=== PATIENT | male | born 1930 | race Caucasian/White ===

== ENCOUNTER 2018-05-17 14:08 | Inpatient (IN) | payer MEDICARE ==
[2018-05-17 14:45] VITALS: BMI 35.0
--- NOTE | 2018-05-17 17:34 | History and Physical Report ---
History of Present Illnes - History of Present Illness Reason for Visit: Right intertrochanteric hip fracture History of Present Illness: This is an 87 year old male who earlier this week was sweeping in his garage. He bent over to push something into the dust pain and when he stood up, he got dizzy and fell to his right landing on his right arm and hip. He had his cell phone with him, and he called 911. He was taken to the ER at [place] where he was noted to have a right displaced, closed intertrochanteric hip fracture. He was taken to the OR by Dr. Pedroza on 05/14/18, and this was repaired with an intramedullary nail. His postoperative course has been a little complicated by lack of willingness to get up and ambulate on it, but he states that he will attempt to do so when he sees therapy tomorrow. - Past Medical History Cardiac: HTN PSYCHOLOGY ASSOCIATE: TIA Musculoskeletal: Osteoarthritis Renal/: Other (BPH) Endocrine: Other (Prediabetes) - Past Surgical History Past Surgical History: Total Knee Replacement (Bilateral), Tonsillectomy, Other (right intramedullary nailing of intratrochanteric hip fracture) - Past Social History Smoke: No Alcohol: None Drugs: None Lives: Alone ( 12 years ago) Domestic Violence: Negative - Health Maintenance Health Maintenance: Cholesterol Influenza Vaccine: Current for this Influenza Season Pneumonia Vaccine: Yes Resuscitation Status: Resusciation Status Resuscitation Status Full Code - Unable to Obtain History Unable to Obtain: No Review of Systems - Review of Systems Constitutional: negative: Fever, Chills Eyes: negative: pain, vision change ENT: negative: Ear Pain, Ear Discharge Respiratory: negative: Cough, Dry Cardiovascular: negative: Chest Pain Gastrointestinal: negative: Nausea, Vomiting Genitourinary: negative: Dysuria Musculoskeletal: Leg Pain (right hip). negative: Neck Pain, Shoulder Pain Skin: negative: Rash, Lesions Neurological: negative: Weakness, Confusion - Medications/Allergies Home Medications: Home Medications Acetaminophen [Tylenol] 650 mg PO Q6 PRN 05/17/18 Carboxymethylcellulos/Glycerin [Refresh Repair 0.5-0.9% Drop] 10 ml OP BID 05/17/18 Cholecalciferol (Vitamin D3) [Vitamin D3] 2,000 unit PO DAILY 05/17/18 Diazepam [Valium] 2 mg PO Q6H PRN 05/17/18 Docusate Sodium [Colace] 100 mg PO BID 05/17/18 Enoxaparin Sodium [Lovenox] 40 mg SQ QD 05/17/18 Finasteride [Proscar] 5 mg PO HS 05/17/18 Lisinopril 20 mg PO DAILY 05/17/18 Polyethylene Glycol 3350 [Miralax] 17 gm PO 1100 05/17/18 Prednisolone Acetate/Pf [Prednisolone Acet 1% Eye Drop] 1 drop OP DAILY 05/17/18 Psyllium Husk (with Sugar) [Metamucil Packet] 3.4 gm PO HS 05/17/18 Tamsulosin HCl 0.4 mg PO HS 05/17/18 Tramadol HCl [Ultram] 50 mg PO Q4H PRN 05/17/18 amLODIPine BESYLATE [Norvasc] 5 mg PO 0900 05/17/18 oxyCODONE HCL/ACETAMINOPHEN [Percocet 5-325 mg Tablet] 2 each PO Q4 PRN 05/17/18 Current Inpatient Medications: Current Inpatient Medications Enoxaparin Sodium (Lovenox) 30 mg SQ DAILY RAUDEL Stop: 06/01/18 08:59 Exam - Exam Vital Signs: Vital Signs (72 hours) 05/17/18 05/17/18 14:34 14:42 Temperature 98.0 F 98 F Pulse Rate [ 80 80 Left] Respiratory 20 20 Rate Blood Pressure 149/67 149/67 [Left Arm] O2 Sat by Pulse 97 97 Oximetry General: Alert, Oriented to Person, Oriented to Place, Oriented to Time, Cooperative, Mild distress HEENT: Atraumatic, PERRLA, EOMI Neck: Stridor, Rigidity Lungs: Clear to auscultation, Normal air movement Cardiovascular: Murmur (III/), Irregularly Irregular Murmur: Systolic Murmur Murmur Location: Left Sternal Boarder Heart Murmur Grade: III Abdomen: Normal bowel sounds, Soft, No tenderness, No hepatospenomegaly Genitourinary: No: Other Male Genitourinary: No: Scrotal Edema Female Genitourinary: No: Other Integumentary: Normal, [place], Warm Extremities: No clubbing, No cyanosis, Other (Incisions on right hip look good) Neurological: Normal speech, Strength Equal Bilat Psych/Mental Status: Mental status NL, Mood NL Assessment/Plan - Assessment/Plan (1) Intertrochanteric fracture of right hip Status: Acute Current Visit: Yes Qualifiers: Encounter type: initial encounter Fracture type: closed Fracture alignment: displaced Qualified Code(s): S72.141A - Displaced intertrochanteric fracture of right femur, initial encounter for closed fracture Assessment: S/P intramedullary nailing Plan: Pain medication PT/OT (2) Prediabetes Status: Acute Current Visit: Yes Assessment: His blood sugars were all well controlled at [facility], so I don't think that we need to continue with SSI (3) BPH (benign prostatic hyperplasia) Status: Acute Current Visit: Yes Assessment: Continue Flomax (4) Constipation Status: Acute Current Visit: Yes Assessment: Miralax, senokot/colace (5) Essential hypertension Status: Acute Current Visit: Yes Assessment: Continue lisinopril VTE Assessment - RISK FACTOR SCORE VTE RISK FACTOR SCORES: AGE OVER 60 YEARS, ANTICIPATED BED CONFINEMENT OR IMMOBILIZATION > 24 HOURS - RISK VTE MODERATE RISK: SCORE OF 2 (RISK PROXIMAL DVT 2-4%) PROPHYAXIS NEEDED (On Lovenox)
[2018-05-17] MEDS: TAMSULOSIN HCL 0.4 MG CAP.ER.24H PO SCH (19:21)
[2018-05-17] MEDS ORDERED: oxyCODONE/ACETAMINOPHEN 5/325 TABLET PO ONE (20:18)
[2018-05-17] MEDS: diazePAM 5 MG TABLET PO PRN (21:00)
[2018-05-17] MEDS: oxyCODONE/ACETAMINOPHEN 5/325 TABLET PO PRN (21:00)
[2018-05-17] MEDS: SENNOSIDES/DOCUSATE 8.6/50 MG 1 EACH TABLET PO SCH (21:00)
[2018-05-17] MEDS: CARBOXYMETHYLCELLULOSE 0.5% OU SCH (21:00)
[2018-05-17] MEDS: FINASTERIDE 5 MG TABLET PO SCH (21:00)
[2018-05-18 06:59] LABS: MEAN CORPUSCULAR HEMOGLOBIN 29.2 pg (28.0-34.0)
[2018-05-18 07:00] LABS: BASOPHILS % 0.6 % (0.0-1.5); EOSINOPHILS % 5.2 % (0.0-6.8); NEUTROPHILS # 8.2 # k/uL (1.4-7.7)
[2018-05-18 07:02] LABS: eGFR (Non-African) > 60
[2018-05-18] MEDS ORDERED: oxyCODONE/ACETAMINOPHEN 5/325 TABLET PO ONE ×2 (08:08→20:39)
[2018-05-18] MEDS: oxyCODONE/ACETAMINOPHEN 5/325 TABLET PO PRN ×2 (08:10→20:42)
[2018-05-18] MEDS: PREDNISOLONE ACETATE OU SCH (08:11)
[2018-05-18] MEDS: amLODIPine BESYLATE 5 MG TABLET PO SCH (08:11)
[2018-05-18] MEDS: ENOXAPARIN SODIUM 30 MG/0.3 ML DISP.SYRIN SQ SCH (08:11)
[2018-05-18] MEDS: CARBOXYMETHYLCELLULOSE 0.5% OU SCH ×2 (08:11→20:42)
[2018-05-18] MEDS: LISINOPRIL 10 MG TABLET PO SCH (08:11)
[2018-05-18] MEDS: SENNOSIDES/DOCUSATE 8.6/50 MG 1 EACH TABLET PO SCH ×2 (08:12→20:43)
[2018-05-18] MEDS: CHOLECALCIFEROL (VIT-D3) 1,000 UNIT TABLET PO SCH (08:12)
[2018-05-18] MEDS: BISACODYL 10 MG SUPP.RECT RC PRN (08:25)
[2018-05-18] MEDS: ASPARTAME PO SCH (10:24)
[2018-05-18] MEDS: PSYLLIUM HUSK PO SCH (10:24)
[2018-05-18] MEDS: TAMSULOSIN HCL 0.4 MG CAP.ER.24H PO SCH (17:05)
[2018-05-18] MEDS ORDERED: SENNOSIDES 8.6 MG TABLET PO ONE (20:37)
[2018-05-18] MEDS: FINASTERIDE 5 MG TABLET PO SCH (20:43)
[2018-05-19] MEDS ORDERED: oxyCODONE/ACETAMINOPHEN 5/325 TABLET PO ONE (07:17)
[2018-05-19] MEDS: oxyCODONE/ACETAMINOPHEN 5/325 TABLET PO PRN ×3 (07:19→20:42)
[2018-05-19] MEDS: diazePAM 5 MG TABLET PO PRN ×2 (08:02→20:41)
[2018-05-19] MEDS: ENOXAPARIN SODIUM 30 MG/0.3 ML DISP.SYRIN SQ SCH (09:35)
[2018-05-19] MEDS: PREDNISOLONE ACETATE OU SCH (09:36)
[2018-05-19] MEDS: SENNOSIDES/DOCUSATE 8.6/50 MG 1 EACH TABLET PO SCH ×2 (09:36→20:42)
[2018-05-19] MEDS: LISINOPRIL 10 MG TABLET PO SCH (09:36)
[2018-05-19] MEDS: amLODIPine BESYLATE 5 MG TABLET PO SCH (09:36)
[2018-05-19] MEDS: CHOLECALCIFEROL (VIT-D3) 1,000 UNIT TABLET PO SCH (09:37)
[2018-05-19] MEDS: CARBOXYMETHYLCELLULOSE 0.5% OU SCH ×2 (10:11→20:42)
[2018-05-19] MEDS: ASPARTAME PO SCH (11:46)
[2018-05-19] MEDS: PSYLLIUM HUSK PO SCH (11:46)
[2018-05-19] MEDS: TAMSULOSIN HCL 0.4 MG CAP.ER.24H PO SCH (17:56)
[2018-05-19] MEDS: FINASTERIDE 5 MG TABLET PO SCH (20:42)
[2018-05-20] MEDS: ENOXAPARIN SODIUM 30 MG/0.3 ML DISP.SYRIN SQ SCH (08:52)
[2018-05-20] MEDS: SENNOSIDES/DOCUSATE 8.6/50 MG 1 EACH TABLET PO SCH ×2 (08:52→21:31)
[2018-05-20] MEDS: CARBOXYMETHYLCELLULOSE 0.5% OU SCH ×2 (08:52→21:31)
[2018-05-20] MEDS: CHOLECALCIFEROL (VIT-D3) 1,000 UNIT TABLET PO SCH (08:53)
[2018-05-20] MEDS: oxyCODONE/ACETAMINOPHEN 5/325 TABLET PO PRN ×2 (08:53→21:32)
[2018-05-20] MEDS: amLODIPine BESYLATE 5 MG TABLET PO SCH (08:53)
[2018-05-20] MEDS: PREDNISOLONE ACETATE OU SCH (08:53)
[2018-05-20] MEDS: LISINOPRIL 10 MG TABLET PO SCH (09:44)
[2018-05-20] MEDS: PSYLLIUM HUSK PO SCH (12:40)
[2018-05-20] MEDS: ASPARTAME PO SCH (12:40)
[2018-05-20] MEDS: TAMSULOSIN HCL 0.4 MG CAP.ER.24H PO SCH (17:13)
[2018-05-20] MEDS: FINASTERIDE 5 MG TABLET PO SCH (21:31)
[2018-05-21] MEDS: amLODIPine BESYLATE 5 MG TABLET PO SCH (08:37)
[2018-05-21] MEDS: ENOXAPARIN SODIUM 30 MG/0.3 ML DISP.SYRIN SQ SCH (08:37)
[2018-05-21] MEDS: PREDNISOLONE ACETATE OU SCH (08:37)
[2018-05-21] MEDS: LISINOPRIL 10 MG TABLET PO SCH (08:37)
[2018-05-21] MEDS: SENNOSIDES/DOCUSATE 8.6/50 MG 1 EACH TABLET PO SCH ×2 (08:38→20:44)
[2018-05-21] MEDS: oxyCODONE/ACETAMINOPHEN 5/325 TABLET PO PRN ×2 (08:50→20:44)
[2018-05-21] MEDS: CARBOXYMETHYLCELLULOSE 0.5% OU SCH ×2 (09:00→20:47)
[2018-05-21] MEDS: CHOLECALCIFEROL (VIT-D3) 1,000 UNIT TABLET PO SCH (09:00)
[2018-05-21] MEDS: ASPARTAME PO SCH (11:48)
[2018-05-21] MEDS: PSYLLIUM HUSK PO SCH (11:48)
[2018-05-21] MEDS: TAMSULOSIN HCL 0.4 MG CAP.ER.24H PO SCH (17:37)
[2018-05-21] MEDS: FINASTERIDE 5 MG TABLET PO SCH (20:44)
[2018-05-22] MEDS: amLODIPine BESYLATE 5 MG TABLET PO SCH (08:13)
[2018-05-22] MEDS: CARBOXYMETHYLCELLULOSE 0.5% OU SCH ×2 (08:13→20:33)
[2018-05-22] MEDS: ENOXAPARIN SODIUM 30 MG/0.3 ML DISP.SYRIN SQ SCH (08:13)
[2018-05-22] MEDS: PREDNISOLONE ACETATE OU SCH (08:13)
[2018-05-22] MEDS: LISINOPRIL 10 MG TABLET PO SCH (08:14)
[2018-05-22] MEDS: SENNOSIDES/DOCUSATE 8.6/50 MG 1 EACH TABLET PO SCH ×2 (08:14→20:33)
[2018-05-22] MEDS: CHOLECALCIFEROL (VIT-D3) 1,000 UNIT TABLET PO SCH (08:14)
[2018-05-22] MEDS: oxyCODONE/ACETAMINOPHEN 5/325 TABLET PO PRN (08:19)
[2018-05-22] MEDS: ASPARTAME PO SCH (11:39)
[2018-05-22] MEDS: PSYLLIUM HUSK PO SCH (11:39)
[2018-05-22] MEDS: TAMSULOSIN HCL 0.4 MG CAP.ER.24H PO SCH (17:26)
[2018-05-22] MEDS: FINASTERIDE 5 MG TABLET PO SCH (20:33)
[2018-05-23] MEDS: oxyCODONE/ACETAMINOPHEN 5/325 TABLET PO PRN ×2 (05:54→15:10)
[2018-05-23] MEDS: amLODIPine BESYLATE 5 MG TABLET PO SCH (08:11)
[2018-05-23] MEDS: CHOLECALCIFEROL (VIT-D3) 1,000 UNIT TABLET PO SCH (08:11)
[2018-05-23] MEDS: CARBOXYMETHYLCELLULOSE 0.5% OU SCH ×2 (08:11→21:00)
[2018-05-23] MEDS: LISINOPRIL 10 MG TABLET PO SCH (08:11)
[2018-05-23] MEDS: PREDNISOLONE ACETATE OU SCH (08:11)
[2018-05-23] MEDS: ENOXAPARIN SODIUM 30 MG/0.3 ML DISP.SYRIN SQ SCH (08:11)
[2018-05-23] MEDS: SENNOSIDES/DOCUSATE 8.6/50 MG 1 EACH TABLET PO SCH ×2 (08:11→21:00)
[2018-05-23] MEDS: PSYLLIUM HUSK PO SCH (10:26)
[2018-05-23] MEDS: ASPARTAME PO SCH (10:26)
[2018-05-23] MEDS ORDERED: HYDROCORTISONE 2.5% RC PRN (10:29)
[2018-05-23] MEDS: TAMSULOSIN HCL 0.4 MG CAP.ER.24H PO SCH (17:26)
[2018-05-23] MEDS: FINASTERIDE 5 MG TABLET PO SCH (21:00)
[2018-05-24] MEDS: CARBOXYMETHYLCELLULOSE 0.5% OU SCH ×2 (08:12→21:00)
[2018-05-24] MEDS: PREDNISOLONE ACETATE OU SCH (08:12)
[2018-05-24] MEDS: amLODIPine BESYLATE 5 MG TABLET PO SCH (08:12)
[2018-05-24] MEDS: ENOXAPARIN SODIUM 30 MG/0.3 ML DISP.SYRIN SQ SCH (08:12)
[2018-05-24] MEDS: LISINOPRIL 10 MG TABLET PO SCH (08:13)
[2018-05-24] MEDS: CHOLECALCIFEROL (VIT-D3) 1,000 UNIT TABLET PO SCH (08:13)
[2018-05-24] MEDS: SENNOSIDES/DOCUSATE 8.6/50 MG 1 EACH TABLET PO SCH ×2 (08:13→21:00)
[2018-05-24] MEDS: oxyCODONE/ACETAMINOPHEN 5/325 TABLET PO PRN ×2 (08:28→21:00)
[2018-05-24] MEDS: PSYLLIUM HUSK PO SCH (10:51)
[2018-05-24] MEDS: ASPARTAME PO SCH (10:51)
[2018-05-24] MEDS: TAMSULOSIN HCL 0.4 MG CAP.ER.24H PO SCH (17:31)
[2018-05-24] MEDS: FINASTERIDE 5 MG TABLET PO SCH (21:00)
[2018-05-25] MEDS: CARBOXYMETHYLCELLULOSE 0.5% OU SCH ×2 (08:30→21:18)
[2018-05-25] MEDS: CHOLECALCIFEROL (VIT-D3) 1,000 UNIT TABLET PO SCH (08:31)
[2018-05-25] MEDS: LISINOPRIL 10 MG TABLET PO SCH (08:31)
[2018-05-25] MEDS: ENOXAPARIN SODIUM 30 MG/0.3 ML DISP.SYRIN SQ SCH (08:31)
[2018-05-25] MEDS: SENNOSIDES/DOCUSATE 8.6/50 MG 1 EACH TABLET PO SCH ×2 (08:31→21:18)
[2018-05-25] MEDS: PREDNISOLONE ACETATE OU SCH (08:31)
[2018-05-25] MEDS: amLODIPine BESYLATE 5 MG TABLET PO SCH (08:31)
[2018-05-25] MEDS: ACETAMINOPHEN 325 MG TABLET PO PRN ×2 (08:43→14:35)
[2018-05-25] MEDS: PSYLLIUM HUSK PO SCH (11:49)
[2018-05-25] MEDS: ASPARTAME PO SCH (11:49)
[2018-05-25] MEDS: NAPROXEN 250 MG TABLET PO PRN (17:16)
[2018-05-25] MEDS: TAMSULOSIN HCL 0.4 MG CAP.ER.24H PO SCH (17:16)
[2018-05-25] MEDS: FINASTERIDE 5 MG TABLET PO SCH (21:18)
[2018-05-26] MEDS: amLODIPine BESYLATE 5 MG TABLET PO SCH (08:20)
[2018-05-26] MEDS: ENOXAPARIN SODIUM 30 MG/0.3 ML DISP.SYRIN SQ SCH (08:20)
[2018-05-26] MEDS: CARBOXYMETHYLCELLULOSE 0.5% OU SCH ×2 (08:20→20:15)
[2018-05-26] MEDS: PREDNISOLONE ACETATE OU SCH (08:20)
[2018-05-26] MEDS: SENNOSIDES/DOCUSATE 8.6/50 MG 1 EACH TABLET PO SCH ×2 (08:21→20:15)
[2018-05-26] MEDS: LISINOPRIL 10 MG TABLET PO SCH (08:21)
[2018-05-26] MEDS: CHOLECALCIFEROL (VIT-D3) 1,000 UNIT TABLET PO SCH (08:21)
[2018-05-26] MEDS: PSYLLIUM HUSK PO SCH (11:26)
[2018-05-26] MEDS: ASPARTAME PO SCH (11:26)
[2018-05-26] MEDS: TAMSULOSIN HCL 0.4 MG CAP.ER.24H PO SCH (17:10)
[2018-05-26] MEDS: NAPROXEN 250 MG TABLET PO PRN (17:10)
[2018-05-26] MEDS: FINASTERIDE 5 MG TABLET PO SCH (20:15)
[2018-05-26] MEDS: oxyCODONE/ACETAMINOPHEN 5/325 TABLET PO PRN (20:17)
[2018-05-27] MEDS: NAPROXEN 250 MG TABLET PO PRN (10:15)
[2018-05-27] MEDS: LISINOPRIL 10 MG TABLET PO SCH (10:16)
[2018-05-27] MEDS: CHOLECALCIFEROL (VIT-D3) 1,000 UNIT TABLET PO SCH (10:16)
[2018-05-27] MEDS: amLODIPine BESYLATE 5 MG TABLET PO SCH (10:16)
[2018-05-27] MEDS: ENOXAPARIN SODIUM 30 MG/0.3 ML DISP.SYRIN SQ SCH (10:16)
[2018-05-27] MEDS: PREDNISOLONE ACETATE OU SCH (10:17)
[2018-05-27] MEDS: CARBOXYMETHYLCELLULOSE 0.5% OU SCH ×2 (10:17→20:46)
[2018-05-27] MEDS: SENNOSIDES/DOCUSATE 8.6/50 MG 1 EACH TABLET PO SCH ×2 (10:17→20:46)
[2018-05-27] MEDS: PSYLLIUM HUSK PO SCH (12:13)
[2018-05-27] MEDS: ASPARTAME PO SCH (12:13)
[2018-05-27] MEDS: TAMSULOSIN HCL 0.4 MG CAP.ER.24H PO SCH (18:11)
[2018-05-27] MEDS: FINASTERIDE 5 MG TABLET PO SCH (20:46)
[2018-05-27] MEDS: PHENAZOPYRIDINE HCL 200 MG TABLET PO SCH (21:23)
[2018-05-28] MEDS: oxyCODONE/ACETAMINOPHEN 5/325 TABLET PO PRN ×2 (02:52→20:11)
[2018-05-28] MEDS ORDERED: BISACODYL 5 MG TABLET.DR PO ONE (08:05)
--- NOTE | 2018-05-28 08:07 | Inpatient Progress Note ---
Subjective - Required Recertification Statement I anticipate X number of days because-include discharge plan: 10 - Review of Systems Subjective: Patient complains of pain with urination, urinating every 10 min , and only able to void 100 cc. Had a catheter when he came from his hip fx but was bladder trained and weaned off catheter. He believes the problem is not being on his home regimen for his prostate, though I explained the meds are the same we have him on here but they look different based on different suppliers. Urine culture is pending and should be back tomorrow. Objective - Exam Vitals and I&O: Vital Signs Temp 97.2 F L 05/27/18 21:00 Pulse 70 05/27/18 21:00 Resp 20 05/27/18 21:00 BP 128/69 05/27/18 21:00 Pulse Ox 99 05/27/18 21:00 Intake & Output 05/27/18 05/27/18 05/28/18 11:59 23:59 11:59 Intake Total 1040 960 720 Output Total 1375 1 450 Balance -335 959 270 Weight 116.913 kg Intake: Oral 1040 960 720 Output: Urine 1375 1 450 Other: Voiding Method Bedside Commode # Voids 4 # Bowel Movements 0 General: Alert, Oriented to Person, Oriented to Place, Oriented to Time, Cooperative, No acute distress Lungs: Clear to auscultation, Normal air movement, Speaks full Sentences - Results Results: Laboratory Results WBC 11.20 K/ul (4.00-12.00) 05/18/18 06:20 RBC 4.22 M/ul (3.90-5.20) 05/18/18 06:20 Hgb 12.4 g/dL (12.0-18.0) 05/18/18 06:20 Hct 37.2 % (37.0-53.0) 05/18/18 06:20 MCV 88.0 fl (80.0-100.0) 05/18/18 06:20 MCH 29.2 pg (28.0-34.0) 05/18/18 06:20 MCHC 33.2 g/dL (30.0-36.0) 05/18/18 06:20 RDW 14.2 % (11.3-14.3) 05/18/18 06:20 Plt Count 235 K/mm3 (130-400) 05/18/18 06:20 Neut % (Auto) 73.1 % (39.0-79.0) 05/18/18 06:20 Lymph % (Auto) 15.1 % (16.0-50.0) L 05/18/18 06:20 [place] % (Auto) 6.0 % (0.0-11.0) 05/18/18 06:20 Eos % (Auto) 5.2 % (0.0-6.8) 05/18/18 06:20 Baso % (Auto) 0.6 % (0.0-1.5) 05/18/18 06:20 Neut # (Auto) 8.2 # k/uL (1.4-7.7) H 05/18/18 06:20 Lymph # (Auto) 1.7 # k/uL (0.6-4.0) 05/18/18 06:20 [place] # (Auto) 0.7 # k/uL (0.0-0.9) 05/18/18 06:20 Eos # (Auto) 0.6 # k/uL (0.0-0.6) 05/18/18 06:20 Baso # (Auto) 0.1 # k/uL (0.0-0.5) 05/18/18 06:20 Sodium 134 mmol/L (137-145) L 05/18/18 06:20 Potassium 3.6 mmol/L (3.5-5.1) 05/18/18 06:20 Chloride 100 mmol/L (98-107) 05/18/18 06:20 Carbon Dioxide 29 mmol/L (22-30) 05/18/18 06:20 BUN 17 mg/dL (9-20) 05/18/18 06:20 Creatinine 0.81 mg/dL (0.66-1.25) 05/18/18 06:20 Estimated Creat Clear 116 05/18/18 06:20 Est GFR ( Amer) > 60 (60-) 05/18/18 06:20 Est GFR (Non-Af Amer) > 60 (60-) 05/18/18 06:20 Glucose 126 mg/dL (74-106) H 05/18/18 06:20 Calcium 8.5 mg/dL (8.4-10.2) 05/18/18 06:20 Total Bilirubin 1.4 mg/dL (0.2-1.3) H 05/18/18 06:20 AST 30 U/L (15-46) 05/18/18 06:20 ALT 24 U/L (0-50) 05/18/18 06:20 Alkaline Phosphatase 74 U/L (38-126) 05/18/18 06:20 Total Protein 6.7 g/dL (6.3-8.2) 05/18/18 06:20 Albumin 3.5 g/dL (3.5-5.0) 05/18/18 06:20 Assessment/Plan - Assessment/Plan (1) Urinary retention Status: Acute Current Visit: Yes Plan: PVR u/s done showed 1000 cc in bladder before void and 1200 cc in bladder after void. Interestingly, the tech did not see an enlarged prostate. Will replace hines catheter at this time. Will need to see urology in the future. Await urine culture
[2018-05-28] MEDS: CARBOXYMETHYLCELLULOSE 0.5% OU SCH ×2 (09:24→20:13)
[2018-05-28] MEDS: SENNOSIDES/DOCUSATE 8.6/50 MG 1 EACH TABLET PO SCH ×2 (09:25→20:10)
[2018-05-28] MEDS: ENOXAPARIN SODIUM 30 MG/0.3 ML DISP.SYRIN SQ SCH (09:25)
[2018-05-28] MEDS: amLODIPine BESYLATE 5 MG TABLET PO SCH (09:25)
[2018-05-28] MEDS: PREDNISOLONE ACETATE OU SCH (09:26)
[2018-05-28] MEDS: LISINOPRIL 10 MG TABLET PO SCH (09:27)
[2018-05-28] MEDS: CHOLECALCIFEROL (VIT-D3) 1,000 UNIT TABLET PO SCH (09:28)
[2018-05-28] MEDS: PHENAZOPYRIDINE HCL 200 MG TABLET PO SCH (09:46)
[2018-05-28] MEDS: ASPARTAME PO SCH (11:10)
[2018-05-28] MEDS: PSYLLIUM HUSK PO SCH (11:10)
--- NOTE | 2018-05-28 13:08 | Diagnostic Imaging Report ---
ROSALIO LAZO [facility] [address] [facility].[address] [address] Report Submission Date: May 28, 2018 12:46:07 PM CDT Patient Study Name: ANASTASIIA TIPTON Date: May 28, 2018 10:25:45 AM CDT Modality Type: US Gender: M Description: US PELVIS LIMITED/BLADDER/F/U : 34 Institution: [facility] Physician: ROSALIO LAZO EXAMINATION: US PELVIS LIMITED/BLADDER/F/U HISTORY: difficult urinating COMPARISON: None FINDINGS: Ultrasound of the urinary bladder was performed to evaluate bladder volume pre and post voiding. The pre-void volume is 773 mL. The post-void volume is 1268 mL. The bladder appears normal without debris. IMPRESSION: Increased urinary bladder volume after voiding, suggesting no significant amount of urine was voided. Electronically signed on May 28, 2018 12:46:07 PM CDT by: Satinder ADKINS
[2018-05-28] MEDS: FINASTERIDE 5 MG TABLET PO SCH (20:10)
[2018-05-28] MEDS: TAMSULOSIN HCL 0.4 MG CAP.ER.24H PO SCH (20:11)
[2018-05-29] MEDS: CARBOXYMETHYLCELLULOSE 0.5% OU SCH ×2 (08:26→20:12)
[2018-05-29] MEDS: SENNOSIDES/DOCUSATE 8.6/50 MG 1 EACH TABLET PO SCH ×2 (08:27→20:12)
[2018-05-29] MEDS: ENOXAPARIN SODIUM 30 MG/0.3 ML DISP.SYRIN SQ SCH (08:27)
[2018-05-29] MEDS: PREDNISOLONE ACETATE OU SCH (08:27)
[2018-05-29] MEDS: amLODIPine BESYLATE 5 MG TABLET PO SCH (08:27)
[2018-05-29] MEDS: LISINOPRIL 10 MG TABLET PO SCH (08:28)
[2018-05-29] MEDS: CHOLECALCIFEROL (VIT-D3) 1,000 UNIT TABLET PO SCH (08:28)
[2018-05-29] MEDS: ASPARTAME PO SCH (11:07)
[2018-05-29] MEDS: PSYLLIUM HUSK PO SCH (11:07)
[2018-05-29] MEDS: oxyCODONE/ACETAMINOPHEN 5/325 TABLET PO PRN ×2 (11:07→23:01)
[2018-05-29] MEDS: FINASTERIDE 5 MG TABLET PO SCH (20:13)
[2018-05-29] MEDS: TAMSULOSIN HCL 0.4 MG CAP.ER.24H PO SCH (20:14)
[2018-05-30] MEDS: ENOXAPARIN SODIUM 30 MG/0.3 ML DISP.SYRIN SQ SCH (08:07)
[2018-05-30] MEDS: CHOLECALCIFEROL (VIT-D3) 1,000 UNIT TABLET PO SCH (08:07)
[2018-05-30] MEDS: LISINOPRIL 10 MG TABLET PO SCH (08:08)
[2018-05-30] MEDS: amLODIPine BESYLATE 5 MG TABLET PO SCH (08:08)
[2018-05-30] MEDS: PREDNISOLONE ACETATE OU SCH (08:09)
[2018-05-30] MEDS: oxyCODONE/ACETAMINOPHEN 5/325 TABLET PO PRN ×2 (08:09→20:08)
[2018-05-30] MEDS: CARBOXYMETHYLCELLULOSE 0.5% OU SCH ×2 (08:09→20:14)
[2018-05-30] MEDS: SENNOSIDES/DOCUSATE 8.6/50 MG 1 EACH TABLET PO SCH ×2 (08:09→20:10)
[2018-05-30] MEDS: PSYLLIUM HUSK PO SCH (11:36)
[2018-05-30] MEDS: ASPARTAME PO SCH (11:36)
[2018-05-30] MEDS: FINASTERIDE 5 MG TABLET PO SCH (20:09)
[2018-05-30] MEDS: TAMSULOSIN HCL 0.4 MG CAP.ER.24H PO SCH (20:10)
[2018-05-31] MEDS: SENNOSIDES/DOCUSATE 8.6/50 MG 1 EACH TABLET PO SCH ×2 (08:37→21:39)
[2018-05-31] MEDS: CHOLECALCIFEROL (VIT-D3) 1,000 UNIT TABLET PO SCH (08:37)
[2018-05-31] MEDS: CARBOXYMETHYLCELLULOSE 0.5% OU SCH ×2 (08:37→21:38)
[2018-05-31] MEDS: ENOXAPARIN SODIUM 30 MG/0.3 ML DISP.SYRIN SQ SCH (08:37)
[2018-05-31] MEDS: LISINOPRIL 10 MG TABLET PO SCH (08:37)
[2018-05-31] MEDS: amLODIPine BESYLATE 5 MG TABLET PO SCH (08:38)
[2018-05-31] MEDS: PREDNISOLONE ACETATE OU SCH (08:38)
[2018-05-31 11:26] LABS: BASOPHILS % 0.6 % (0.0-1.5); EOSINOPHILS % 4.8 % (0.0-6.8); MEAN CORPUSCULAR HEMOGLOBIN 29.8 pg (28.0-34.0); MONOCYTES % 6.7 % (0.0-11.0); NEUTROPHILS # 7.7 # k/uL (1.4-7.7)
[2018-05-31] MEDS ORDERED: POLYETHYLENE GLYCOL 3350 17 GM POWD.PACK ONE (11:54)
[2018-05-31] MEDS: PSYLLIUM HUSK PO SCH (11:58)
[2018-05-31] MEDS: ASPARTAME PO SCH (11:58)
[2018-05-31] MEDS: oxyCODONE/ACETAMINOPHEN 5/325 TABLET PO PRN ×2 (11:58→21:40)
[2018-05-31 12:07] LABS: eGFR (Non-African) > 60
[2018-05-31] MEDS: POLYETHYLENE GLYCOL 3350 17 GM POWD.PACK PEG SCH (12:14)
--- NOTE | 2018-05-31 20:40 | Inpatient Progress Note ---
Subjective - Required Recertification Statement I anticipate X number of days because-include discharge plan: 5 - Review of Systems Events since last encounter: Was called to patient room this afternoon- pt had a shower assisted by therapies- windy were approved to remove from right hip- patient apparently became lightheaded; diaphoretic- pt was hypotensive. Therapies assisted patient with getting into bed and he felt better- color improved- IV with lab draw was completed (negative results)- EKG negative. Patient feels that he may have just got over heated. Ida better the rest of the evening. General: Denies: Fatigue HEENT: Visual Changes (temporary during orthostatic episode). Denies: Head Aches Pulmonary: Denies: Dyspnea Cardiovascular: Palpitations (during orthostatic episode), Light Headedness. Denies: Chest Pain Gastrointestinal: Denies: Nausea, Vomiting, Abdominal Pain Genitourinary: Denies: Dysuria Musculoskeletal: Denies: Back Pain Neurological: Weakness Objective - Exam Vitals and I&O: Vital Signs Temp 97.7 F 05/31/18 08:13 Pulse 63 05/31/18 08:13 Resp 20 05/31/18 08:13 BP 134/62 05/31/18 08:13 Pulse Ox 95 05/31/18 08:13 Intake & Output 05/30/18 05/31/18 05/31/18 23:59 11:59 23:59 Intake Total 240 780 320 Output Total 1150 1150 1000 Balance -910 -963 -731 Weight 112.491 kg Intake: Oral 240 780 320 Output: Urine 1150 1150 1000 Other: Voiding Method Indwelling Catheter Urinal # Bowel Movements 1 0 General: Alert, Oriented to Person, Oriented to Place, Oriented to Time, Cooperative, Mild distress (feeling much better after being placed in bed) HEENT: PERRLA, Nose Mucous membr. moist/[place] Neck: Supple, +2 carotid pulse wo bruit Lungs: Clear to auscultation, Normal air movement, Speaks full Sentences Cardiovascular: Regularly Irregular Abdomen: Normal bowel sounds, Soft, No tenderness Extremities: Normal pulses Skin: Pale, Diaphoresis (improving- color is getting better- skin is dry) Neurological: Normal speech, Strength Equal Bilat, Sensation intact Psych/Mental Status: Appropriate Affect - Results Results: Laboratory Results WBC 10.80 K/ul (4.00-12.00) 05/31/18 11:00 RBC 4.74 M/ul (3.90-5.20) 05/31/18 11:00 Hgb 14.1 g/dL (12.0-18.0) 05/31/18 11:00 Hct 42.4 % (37.0-53.0) 05/31/18 11:00 MCV 89.0 fl (80.0-100.0) 05/31/18 11:00 MCH 29.8 pg (28.0-34.0) 05/31/18 11:00 MCHC 33.4 g/dL (30.0-36.0) 05/31/18 11:00 RDW 13.4 % (11.3-14.3) 05/31/18 11:00 Plt Count 455 K/mm3 (130-400) H 05/31/18 11:00 Neut % (Auto) 71.6 % (39.0-79.0) 05/31/18 11:00 Lymph % (Auto) 16.3 % (16.0-50.0) 05/31/18 11:00 [place] % (Auto) 6.7 % (0.0-11.0) 05/31/18 11:00 Eos % (Auto) 4.8 % (0.0-6.8) 05/31/18 11:00 Baso % (Auto) 0.6 % (0.0-1.5) 05/31/18 11:00 Neut # (Auto) 7.7 # k/uL (1.4-7.7) 05/31/18 11:00 Lymph # (Auto) 1.8 # k/uL (0.6-4.0) 05/31/18 11:00 [place] # (Auto) 0.7 # k/uL (0.0-0.9) 05/31/18 11:00 Eos # (Auto) 0.5 # k/uL (0.0-0.6) 05/31/18 11:00 Baso # (Auto) 0.1 # k/uL (0.0-0.5) 05/31/18 11:00 Sodium 135 mmol/L (137-145) L 05/31/18 Unknown Potassium 4.2 mmol/L (3.5-5.1) 05/31/18 Unknown Chloride 100 mmol/L (98-107) 05/31/18 Unknown Carbon Dioxide 26 mmol/L (22-30) 05/31/18 Unknown BUN 16 mg/dL (9-20) 05/31/18 Unknown Creatinine 1.09 mg/dL (0.66-1.25) 05/31/18 Unknown Estimated Creat Clear 81 05/31/18 Unknown Est GFR ( Amer) > 60 (60-) 05/31/18 Unknown Est GFR (Non-Af Amer) > 60 (60-) 05/31/18 Unknown Glucose 138 mg/dL (74-106) H 05/31/18 Unknown Calcium 9.6 mg/dL (8.4-10.2) 05/31/18 Unknown Total Bilirubin 1.0 mg/dL (0.2-1.3) 05/31/18 Unknown AST 40 U/L (15-46) 05/31/18 Unknown ALT 45 U/L (0-50) 05/31/18 Unknown Alkaline Phosphatase 193 U/L (38-126) H 05/31/18 Unknown Total Protein 7.6 g/dL (6.3-8.2) 05/31/18 Unknown Albumin 4.9 g/dL (3.5-5.0) 05/31/18 Unknown Assessment/Plan - Assessment/Plan (1) Vagal reaction Status: Acute Current Visit: Yes Plan: will let patient rest- feeling much better- possibly just got to warm and over did it. Will continue to monitor
[2018-05-31] MEDS: FINASTERIDE 5 MG TABLET PO SCH (21:34)
[2018-05-31] MEDS: TAMSULOSIN HCL 0.4 MG CAP.ER.24H PO SCH (21:47)
[2018-06-01] MEDS: amLODIPine BESYLATE 5 MG TABLET PO SCH (08:04)
[2018-06-01] MEDS: SENNOSIDES/DOCUSATE 8.6/50 MG 1 EACH TABLET PO SCH ×2 (08:04→20:35)
[2018-06-01] MEDS: CARBOXYMETHYLCELLULOSE 0.5% OU SCH ×2 (08:04→20:36)
[2018-06-01] MEDS: CHOLECALCIFEROL (VIT-D3) 1,000 UNIT TABLET PO SCH (08:04)
[2018-06-01] MEDS: LISINOPRIL 10 MG TABLET PO SCH (08:04)
[2018-06-01] MEDS: PREDNISOLONE ACETATE OU SCH (08:04)
[2018-06-01] MEDS: BISACODYL 10 MG SUPP.RECT RC PRN (08:22)
[2018-06-01] MEDS: ASPARTAME PO SCH (11:23)
[2018-06-01] MEDS: PSYLLIUM HUSK PO SCH (11:23)
[2018-06-01] MEDS: POLYETHYLENE GLYCOL 3350 17 GM POWD.PACK PEG SCH (11:23)
[2018-06-01] MEDS: FINASTERIDE 5 MG TABLET PO SCH (20:35)
[2018-06-01] MEDS: TAMSULOSIN HCL 0.4 MG CAP.ER.24H PO SCH (20:35)
[2018-06-02] MEDS: PREDNISOLONE ACETATE OU SCH (08:25)
[2018-06-02] MEDS: LISINOPRIL 10 MG TABLET PO SCH (08:25)
[2018-06-02] MEDS: amLODIPine BESYLATE 5 MG TABLET PO SCH (08:25)
[2018-06-02] MEDS: CARBOXYMETHYLCELLULOSE 0.5% OU SCH ×2 (08:25→20:40)
[2018-06-02] MEDS: SENNOSIDES/DOCUSATE 8.6/50 MG 1 EACH TABLET PO SCH ×2 (08:26→20:40)
[2018-06-02] MEDS: CHOLECALCIFEROL (VIT-D3) 1,000 UNIT TABLET PO SCH (08:26)
[2018-06-02] MEDS: ASPARTAME PO SCH (11:41)
[2018-06-02] MEDS: PSYLLIUM HUSK PO SCH (11:41)
[2018-06-02] MEDS: POLYETHYLENE GLYCOL 3350 17 GM POWD.PACK PEG SCH (11:41)
[2018-06-02] MEDS: FINASTERIDE 5 MG TABLET PO SCH (20:40)
[2018-06-02] MEDS: NAPROXEN 250 MG TABLET PO PRN (20:40)
[2018-06-02] MEDS: TAMSULOSIN HCL 0.4 MG CAP.ER.24H PO SCH (20:40)
[2018-06-03] MEDS: SENNOSIDES/DOCUSATE 8.6/50 MG 1 EACH TABLET PO SCH ×2 (08:51→20:21)
[2018-06-03] MEDS: amLODIPine BESYLATE 5 MG TABLET PO SCH (08:51)
[2018-06-03] MEDS: CHOLECALCIFEROL (VIT-D3) 1,000 UNIT TABLET PO SCH (08:51)
[2018-06-03] MEDS: LISINOPRIL 10 MG TABLET PO SCH (08:51)
[2018-06-03] MEDS: CARBOXYMETHYLCELLULOSE 0.5% OU SCH ×2 (08:51→20:21)
[2018-06-03] MEDS: PREDNISOLONE ACETATE OU SCH (08:51)
[2018-06-03] MEDS: ASPARTAME PO SCH (11:15)
[2018-06-03] MEDS: POLYETHYLENE GLYCOL 3350 17 GM POWD.PACK PEG SCH (11:15)
[2018-06-03] MEDS: PSYLLIUM HUSK PO SCH (11:15)
[2018-06-03] MEDS: FINASTERIDE 5 MG TABLET PO SCH (20:21)
[2018-06-03] MEDS: TAMSULOSIN HCL 0.4 MG CAP.ER.24H PO SCH (20:21)
[2018-06-03] MEDS: NAPROXEN 250 MG TABLET PO PRN (20:26)
[2018-06-04] MEDS: amLODIPine BESYLATE 5 MG TABLET PO SCH (08:37)
[2018-06-04] MEDS: LISINOPRIL 10 MG TABLET PO SCH (08:38)
[2018-06-04] MEDS: CARBOXYMETHYLCELLULOSE 0.5% OU SCH ×2 (08:39→20:18)
[2018-06-04] MEDS: PREDNISOLONE ACETATE OU SCH (08:41)
[2018-06-04] MEDS: SENNOSIDES/DOCUSATE 8.6/50 MG 1 EACH TABLET PO SCH ×2 (08:42→20:18)
[2018-06-04] MEDS: CHOLECALCIFEROL (VIT-D3) 1,000 UNIT TABLET PO SCH (08:42)
[2018-06-04] MEDS: PSYLLIUM HUSK PO SCH (11:08)
[2018-06-04] MEDS: ASPARTAME PO SCH (11:08)
[2018-06-04] MEDS: POLYETHYLENE GLYCOL 3350 17 GM POWD.PACK PEG SCH (11:08)
[2018-06-04] MEDS: FINASTERIDE 5 MG TABLET PO SCH (20:18)
[2018-06-04] MEDS: TAMSULOSIN HCL 0.4 MG CAP.ER.24H PO SCH (20:18)
[2018-06-04] MEDS: NAPROXEN 250 MG TABLET PO PRN (20:25)
[2018-06-05] MEDS: LISINOPRIL 10 MG TABLET PO SCH (08:24)
[2018-06-05] MEDS: SENNOSIDES/DOCUSATE 8.6/50 MG 1 EACH TABLET PO SCH ×2 (08:25→20:20)
[2018-06-05] MEDS: CARBOXYMETHYLCELLULOSE 0.5% OU SCH ×2 (08:25→20:21)
[2018-06-05] MEDS: PREDNISOLONE ACETATE OU SCH (08:26)
[2018-06-05] MEDS: amLODIPine BESYLATE 5 MG TABLET PO SCH (08:26)
[2018-06-05] MEDS: CHOLECALCIFEROL (VIT-D3) 1,000 UNIT TABLET PO SCH (08:55)
--- NOTE | 2018-06-05 09:12 | Inpatient Progress Note ---
Subjective - Required Recertification Statement I anticipate X number of days because-include discharge plan: 7 - Review of Systems Events since last encounter: Mr. Red is engaging in therapy much better than on admit. His pain is improved. Therapy is going to be doing stairs today. They were were attempting to have him put his socks on today when I was there, but he was unable to do so. General: Denies: Chills HEENT: Denies: Head Aches Pulmonary: Denies: Dyspnea Cardiovascular: Denies: Chest Pain Gastrointestinal: Denies: Nausea, Vomiting Genitourinary: Denies: Dysuria Musculoskeletal: Leg Pain (Right hip) Neurological: Denies: Weakness, Confusion Objective - Exam Vitals and I&O: Vital Signs Temp 97.4 F L 06/05/18 08:41 Pulse 84 06/05/18 08:41 Resp 18 06/05/18 08:41 BP 135/75 06/05/18 08:41 Pulse Ox 97 06/05/18 08:41 Intake & Output 06/04/18 06/04/18 06/05/18 11:59 23:59 11:59 Intake Total 880 500 840 Output Total 800 1100 400 Balance 80 -600 440 Intake: Oral 880 500 840 Output: Urine 800 1100 400 Other: Voiding Method Indwelling Catheter Indwelling Catheter # Bowel Movements 0 General: Alert, Oriented to Person, Oriented to Place, Obese HEENT: Atraumatic, PERRLA, EOMI Neck: Supple, No JVD Lungs: Clear to auscultation Cardiovascular: Regular rate Abdomen: Normal bowel sounds Extremities: No clubbing, No cyanosis, No edema Skin: Normal, [place], Warm Neurological: Other (Tentative gait) Psych/Mental Status: Mental status NL - Results Results: Laboratory Results WBC 10.80 K/ul (4.00-12.00) 05/31/18 11:00 RBC 4.74 M/ul (3.90-5.20) 05/31/18 11:00 Hgb 14.1 g/dL (12.0-18.0) 05/31/18 11:00 Hct 42.4 % (37.0-53.0) 05/31/18 11:00 MCV 89.0 fl (80.0-100.0) 05/31/18 11:00 MCH 29.8 pg (28.0-34.0) 05/31/18 11:00 MCHC 33.4 g/dL (30.0-36.0) 05/31/18 11:00 RDW 13.4 % (11.3-14.3) 05/31/18 11:00 Plt Count 455 K/mm3 (130-400) H 05/31/18 11:00 Neut % (Auto) 71.6 % (39.0-79.0) 05/31/18 11:00 Lymph % (Auto) 16.3 % (16.0-50.0) 05/31/18 11:00 [place] % (Auto) 6.7 % (0.0-11.0) 05/31/18 11:00 Eos % (Auto) 4.8 % (0.0-6.8) 05/31/18 11:00 Baso % (Auto) 0.6 % (0.0-1.5) 05/31/18 11:00 Neut # (Auto) 7.7 # k/uL (1.4-7.7) 05/31/18 11:00 Lymph # (Auto) 1.8 # k/uL (0.6-4.0) 05/31/18 11:00 [place] # (Auto) 0.7 # k/uL (0.0-0.9) 05/31/18 11:00 Eos # (Auto) 0.5 # k/uL (0.0-0.6) 05/31/18 11:00 Baso # (Auto) 0.1 # k/uL (0.0-0.5) 05/31/18 11:00 Sodium 135 mmol/L (137-145) L 05/31/18 Unknown Potassium 4.2 mmol/L (3.5-5.1) 05/31/18 Unknown Chloride 100 mmol/L (98-107) 05/31/18 Unknown Carbon Dioxide 26 mmol/L (22-30) 05/31/18 Unknown BUN 16 mg/dL (9-20) 05/31/18 Unknown Creatinine 1.09 mg/dL (0.66-1.25) 05/31/18 Unknown Estimated Creat Clear 81 05/31/18 Unknown Est GFR ( Amer) > 60 (60-) 05/31/18 Unknown Est GFR (Non-Af Amer) > 60 (60-) 05/31/18 Unknown Glucose 138 mg/dL (74-106) H 05/31/18 Unknown Calcium 9.6 mg/dL (8.4-10.2) 05/31/18 Unknown Total Bilirubin 1.0 mg/dL (0.2-1.3) 05/31/18 Unknown AST 40 U/L (15-46) 05/31/18 Unknown ALT 45 U/L (0-50) 05/31/18 Unknown Alkaline Phosphatase 193 U/L (38-126) H 05/31/18 Unknown Total Protein 7.6 g/dL (6.3-8.2) 05/31/18 Unknown Albumin 4.9 g/dL (3.5-5.0) 05/31/18 Unknown Assessment/Plan - Assessment/Plan (1) Intertrochanteric fracture of right hip Status: Acute Current Visit: Yes Qualifiers: Encounter type: initial encounter Fracture type: closed Fracture alignment: displaced Qualified Code(s): S72.141A - Displaced intertrochanteric fracture of right femur, initial encounter for closed fracture Assessment: Healing well Plan: Continue PT (2) Prediabetes Status: Acute Current Visit: Yes Assessment: BS all below 140 (3) BPH (benign prostatic hyperplasia) Status: Acute Current Visit: Yes Assessment: Catheter remains in place (4) Constipation Status: Acute Current Visit: Yes Assessment: Continue current stool softeners (5) Essential hypertension Status: Acute Current Visit: Yes Assessment: BP well controlled
[2018-06-05] MEDS: PSYLLIUM HUSK PO SCH (11:20)
[2018-06-05] MEDS: POLYETHYLENE GLYCOL 3350 17 GM POWD.PACK PEG SCH (11:20)
[2018-06-05] MEDS: ASPARTAME PO SCH (11:20)
[2018-06-05] MEDS: NAPROXEN 250 MG TABLET PO PRN (20:20)
[2018-06-05] MEDS: TAMSULOSIN HCL 0.4 MG CAP.ER.24H PO SCH (20:21)
[2018-06-05] MEDS: FINASTERIDE 5 MG TABLET PO SCH (20:21)
[2018-06-06] MEDS: PREDNISOLONE ACETATE OU SCH (08:27)
[2018-06-06] MEDS: CHOLECALCIFEROL (VIT-D3) 1,000 UNIT TABLET PO SCH (08:28)
[2018-06-06] MEDS: LISINOPRIL 10 MG TABLET PO SCH (08:29)
[2018-06-06] MEDS: amLODIPine BESYLATE 5 MG TABLET PO SCH (08:29)
[2018-06-06] MEDS: CARBOXYMETHYLCELLULOSE 0.5% OU SCH ×2 (08:30→20:39)
[2018-06-06] MEDS: SENNOSIDES/DOCUSATE 8.6/50 MG 1 EACH TABLET PO SCH ×2 (08:30→20:39)
[2018-06-06] MEDS: POLYETHYLENE GLYCOL 3350 17 GM POWD.PACK PEG SCH (11:33)
[2018-06-06] MEDS: ASPARTAME PO SCH (11:33)
[2018-06-06] MEDS: PSYLLIUM HUSK PO SCH (11:33)
[2018-06-06] MEDS: FINASTERIDE 5 MG TABLET PO SCH (20:39)
[2018-06-06] MEDS: NAPROXEN 250 MG TABLET PO PRN (20:39)
[2018-06-06] MEDS: TAMSULOSIN HCL 0.4 MG CAP.ER.24H PO SCH (20:39)
[2018-06-07] MEDS: CARBOXYMETHYLCELLULOSE 0.5% OU SCH ×2 (08:07→21:16)
[2018-06-07] MEDS: PREDNISOLONE ACETATE OU SCH (08:07)
[2018-06-07] MEDS: amLODIPine BESYLATE 5 MG TABLET PO SCH (08:08)
[2018-06-07] MEDS: SENNOSIDES/DOCUSATE 8.6/50 MG 1 EACH TABLET PO SCH ×2 (08:09→21:16)
[2018-06-07] MEDS: CHOLECALCIFEROL (VIT-D3) 1,000 UNIT TABLET PO SCH (08:09)
[2018-06-07] MEDS: LISINOPRIL 10 MG TABLET PO SCH (08:09)
[2018-06-07] MEDS: ASPARTAME PO SCH (11:08)
[2018-06-07] MEDS: PSYLLIUM HUSK PO SCH (11:08)
[2018-06-07] MEDS: POLYETHYLENE GLYCOL 3350 17 GM POWD.PACK PEG SCH (11:08)
[2018-06-07] MEDS: FINASTERIDE 5 MG TABLET PO SCH (21:16)
[2018-06-07] MEDS: TAMSULOSIN HCL 0.4 MG CAP.ER.24H PO SCH (21:17)
[2018-06-07] MEDS: NAPROXEN 250 MG TABLET PO PRN (23:54)
[2018-06-08] MEDS: SENNOSIDES/DOCUSATE 8.6/50 MG 1 EACH TABLET PO SCH ×2 (09:46→20:37)
[2018-06-08] MEDS: CARBOXYMETHYLCELLULOSE 0.5% OU SCH ×2 (09:46→20:37)
[2018-06-08] MEDS: CHOLECALCIFEROL (VIT-D3) 1,000 UNIT TABLET PO SCH (09:46)
[2018-06-08] MEDS: PREDNISOLONE ACETATE OU SCH (09:47)
[2018-06-08] MEDS: amLODIPine BESYLATE 5 MG TABLET PO SCH (09:47)
[2018-06-08] MEDS: LISINOPRIL 10 MG TABLET PO SCH (09:47)
[2018-06-08] MEDS: ASPARTAME PO SCH (11:53)
[2018-06-08] MEDS: POLYETHYLENE GLYCOL 3350 17 GM POWD.PACK PEG SCH (11:53)
[2018-06-08] MEDS: PSYLLIUM HUSK PO SCH (11:53)
[2018-06-08] MEDS: FINASTERIDE 5 MG TABLET PO SCH (20:37)
[2018-06-08] MEDS: TAMSULOSIN HCL 0.4 MG CAP.ER.24H PO SCH (21:12)
[2018-06-09] MEDS: CARBOXYMETHYLCELLULOSE 0.5% OU SCH ×2 (07:58→20:51)
[2018-06-09] MEDS: amLODIPine BESYLATE 5 MG TABLET PO SCH (07:58)
[2018-06-09] MEDS: SENNOSIDES/DOCUSATE 8.6/50 MG 1 EACH TABLET PO SCH ×2 (07:58→20:51)
[2018-06-09] MEDS: CHOLECALCIFEROL (VIT-D3) 1,000 UNIT TABLET PO SCH (07:59)
[2018-06-09] MEDS: PREDNISOLONE ACETATE OU SCH (07:59)
[2018-06-09] MEDS: LISINOPRIL 10 MG TABLET PO SCH (07:59)
[2018-06-09] MEDS: POLYETHYLENE GLYCOL 3350 17 GM POWD.PACK PEG SCH (12:07)
[2018-06-09] MEDS: ASPARTAME PO SCH (12:07)
[2018-06-09] MEDS: PSYLLIUM HUSK PO SCH (12:07)
[2018-06-09] MEDS: NAPROXEN 250 MG TABLET PO PRN (20:50)
[2018-06-09] MEDS: TAMSULOSIN HCL 0.4 MG CAP.ER.24H PO SCH (20:50)
[2018-06-09] MEDS: FINASTERIDE 5 MG TABLET PO SCH (20:50)
[2018-06-10] MEDS: CARBOXYMETHYLCELLULOSE 0.5% OU SCH ×2 (08:26→20:28)
[2018-06-10] MEDS: amLODIPine BESYLATE 5 MG TABLET PO SCH (08:27)
[2018-06-10] MEDS: SENNOSIDES/DOCUSATE 8.6/50 MG 1 EACH TABLET PO SCH ×2 (08:27→20:28)
[2018-06-10] MEDS: PREDNISOLONE ACETATE OU SCH (08:27)
[2018-06-10] MEDS: CHOLECALCIFEROL (VIT-D3) 1,000 UNIT TABLET PO SCH (08:28)
[2018-06-10] MEDS: LISINOPRIL 10 MG TABLET PO SCH (08:28)
[2018-06-10] MEDS: POLYETHYLENE GLYCOL 3350 17 GM POWD.PACK PEG SCH (11:07)
[2018-06-10] MEDS: PSYLLIUM HUSK PO SCH (11:07)
[2018-06-10] MEDS: ASPARTAME PO SCH (11:07)
[2018-06-10] MEDS: FINASTERIDE 5 MG TABLET PO SCH (20:28)
[2018-06-10] MEDS: NAPROXEN 250 MG TABLET PO PRN (20:28)
[2018-06-10] MEDS: TAMSULOSIN HCL 0.4 MG CAP.ER.24H PO SCH (20:28)
[2018-06-11] MEDS: CARBOXYMETHYLCELLULOSE 0.5% OU SCH ×2 (08:23→20:41)
[2018-06-11] MEDS: amLODIPine BESYLATE 5 MG TABLET PO SCH (08:23)
[2018-06-11] MEDS: SENNOSIDES/DOCUSATE 8.6/50 MG 1 EACH TABLET PO SCH ×2 (08:24→20:41)
[2018-06-11] MEDS: PREDNISOLONE ACETATE OU SCH (08:24)
[2018-06-11] MEDS: LISINOPRIL 10 MG TABLET PO SCH (08:24)
[2018-06-11] MEDS: CHOLECALCIFEROL (VIT-D3) 1,000 UNIT TABLET PO SCH (08:25)
--- NOTE | 2018-06-11 09:37 | Inpatient Progress Note ---
Subjective - Required Recertification Statement I anticipate X number of days because-include discharge plan: 7 - Review of Systems Events since last encounter: Mr. Red is doing well with therapy. He does have some right knee pain, but he says it is not enough to take any pain medication. He still hopes to go home on discharge. General: Denies: Chills HEENT: Denies: Head Aches Pulmonary: Denies: Dyspnea Cardiovascular: Denies: Chest Pain Gastrointestinal: Denies: Nausea Genitourinary: Denies: Dysuria Musculoskeletal: Other (Right hip and knee pain) Neurological: Denies: Weakness, Numbness Objective - Exam Vitals and I&O: Vital Signs Temp 97.6 F 06/11/18 09:23 Pulse 67 06/11/18 09:23 Resp 18 06/11/18 09:23 BP 123/61 06/11/18 09:23 Pulse Ox 95 06/11/18 09:23 Intake & Output 06/10/18 06/10/18 06/11/18 11:59 23:59 11:59 Intake Total 720 240 240 Output Total 500 1950 800 Balance 220 -1710 -560 Weight 109.769 kg Intake: Oral 720 240 240 Output: Urine 500 1950 800 Other: Voiding Method Indwelling Catheter Indwelling Catheter # Bowel Movements 0 General: Alert, Oriented to Person, Oriented to Place, Obese HEENT: Atraumatic, PERRLA, EOMI Neck: Supple, No JVD Lungs: Clear to auscultation Cardiovascular: Regular rate Abdomen: Normal bowel sounds, Soft, No tenderness Extremities: No clubbing, No cyanosis, Other (Right knee has scar from ) Skin: Normal, [place], Warm Neurological: Normal gait Psych/Mental Status: Mental status NL - Results Results: Laboratory Results WBC 10.80 K/ul (4.00-12.00) 05/31/18 11:00 RBC 4.74 M/ul (3.90-5.20) 05/31/18 11:00 Hgb 14.1 g/dL (12.0-18.0) 05/31/18 11:00 Hct 42.4 % (37.0-53.0) 05/31/18 11:00 MCV 89.0 fl (80.0-100.0) 05/31/18 11:00 MCH 29.8 pg (28.0-34.0) 05/31/18 11:00 MCHC 33.4 g/dL (30.0-36.0) 05/31/18 11:00 RDW 13.4 % (11.3-14.3) 05/31/18 11:00 Plt Count 455 K/mm3 (130-400) H 05/31/18 11:00 Neut % (Auto) 71.6 % (39.0-79.0) 05/31/18 11:00 Lymph % (Auto) 16.3 % (16.0-50.0) 05/31/18 11:00 [place] % (Auto) 6.7 % (0.0-11.0) 05/31/18 11:00 Eos % (Auto) 4.8 % (0.0-6.8) 05/31/18 11:00 Baso % (Auto) 0.6 % (0.0-1.5) 05/31/18 11:00 Neut # (Auto) 7.7 # k/uL (1.4-7.7) 05/31/18 11:00 Lymph # (Auto) 1.8 # k/uL (0.6-4.0) 05/31/18 11:00 [place] # (Auto) 0.7 # k/uL (0.0-0.9) 05/31/18 11:00 Eos # (Auto) 0.5 # k/uL (0.0-0.6) 05/31/18 11:00 Baso # (Auto) 0.1 # k/uL (0.0-0.5) 05/31/18 11:00 Sodium 135 mmol/L (137-145) L 05/31/18 Unknown Potassium 4.2 mmol/L (3.5-5.1) 05/31/18 Unknown Chloride 100 mmol/L (98-107) 05/31/18 Unknown Carbon Dioxide 26 mmol/L (22-30) 05/31/18 Unknown BUN 16 mg/dL (9-20) 05/31/18 Unknown Creatinine 1.09 mg/dL (0.66-1.25) 05/31/18 Unknown Estimated Creat Clear 81 05/31/18 Unknown Est GFR ( Amer) > 60 (60-) 05/31/18 Unknown Est GFR (Non-Af Amer) > 60 (60-) 05/31/18 Unknown Glucose 138 mg/dL (74-106) H 05/31/18 Unknown Calcium 9.6 mg/dL (8.4-10.2) 05/31/18 Unknown Total Bilirubin 1.0 mg/dL (0.2-1.3) 05/31/18 Unknown AST 40 U/L (15-46) 05/31/18 Unknown ALT 45 U/L (0-50) 05/31/18 Unknown Alkaline Phosphatase 193 U/L (38-126) H 05/31/18 Unknown Total Protein 7.6 g/dL (6.3-8.2) 05/31/18 Unknown Albumin 4.9 g/dL (3.5-5.0) 05/31/18 Unknown Assessment/Plan - Assessment/Plan (1) Intertrochanteric fracture of right hip Status: Acute Current Visit: Yes Qualifiers: Encounter type: initial encounter Fracture type: closed Fracture alignment: displaced Qualified Code(s): S72.141A - Displaced intertrochanteric fracture of right femur, initial encounter for closed fracture (2) Prediabetes Status: Acute Current Visit: Yes Assessment: BS are all well controlled (3) BPH (benign prostatic hyperplasia) Status: Acute Current Visit: Yes Assessment: Continue [place] Catheter Continue tamsulosin (4) Constipation Status: Acute Current Visit: Yes Qualifiers: Constipation type: slow transit constipation Qualified Code(s): K59.01 - Slow transit constipation Assessment: Now having regular bowel movements (5) Essential hypertension Status: Acute Current Visit: Yes Assessment: Well controlled
[2018-06-11] MEDS: ASPARTAME PO SCH (11:47)
[2018-06-11] MEDS: PSYLLIUM HUSK PO SCH (11:47)
[2018-06-11] MEDS: POLYETHYLENE GLYCOL 3350 17 GM POWD.PACK PEG SCH (11:47)
[2018-06-11] MEDS: FINASTERIDE 5 MG TABLET PO SCH (20:41)
[2018-06-11] MEDS: TAMSULOSIN HCL 0.4 MG CAP.ER.24H PO SCH (21:08)
[2018-06-12] MEDS: SENNOSIDES/DOCUSATE 8.6/50 MG 1 EACH TABLET PO SCH ×2 (08:35→20:38)
[2018-06-12] MEDS: amLODIPine BESYLATE 5 MG TABLET PO SCH (08:35)
[2018-06-12] MEDS: LISINOPRIL 10 MG TABLET PO SCH (08:35)
[2018-06-12] MEDS: PREDNISOLONE ACETATE OU SCH (08:35)
[2018-06-12] MEDS: CARBOXYMETHYLCELLULOSE 0.5% OU SCH ×2 (08:35→20:38)
[2018-06-12] MEDS: CHOLECALCIFEROL (VIT-D3) 1,000 UNIT TABLET PO SCH (08:35)
[2018-06-12] MEDS: ASPARTAME PO SCH (11:20)
[2018-06-12] MEDS: POLYETHYLENE GLYCOL 3350 17 GM POWD.PACK PEG SCH (11:20)
[2018-06-12] MEDS: PSYLLIUM HUSK PO SCH (11:20)
[2018-06-12] MEDS: FINASTERIDE 5 MG TABLET PO SCH (20:38)
[2018-06-12] MEDS: TAMSULOSIN HCL 0.4 MG CAP.ER.24H PO SCH (21:19)
--- NOTE | 2018-06-12 23:38 | Diagnostic Imaging Report ---
MIGNON GALINDO [facility] [address] [facility] [address] [address] Report Submission Date: June 12, 2018 5:20:27 PM CDT Patient Study Name: ANASTASIIA TIPTON Date: June 12, 2018 4:24:07 PM CDT Modality Type: DX Gender: M Description: RT HIP 2VIEW COMPLETE : 34 Institution: [facility] Physician: MIGNON GALINDO Right hip, 2 views HISTORY Fracture FINDINGS Intramedullary nail and screws stabilize an intertrochanteric fracture. Hardware appears in good position. Reduction is anatomic. There is an avulsion of the lesser trochanter. There is no dislocation or abnormal bone destruction. IMPRESSION ORIF intertrochanteric fracture. Electronically signed on June 12, 2018 5:20:27 PM CDT by: Janes ADKINS
[2018-06-13] MEDS: CARBOXYMETHYLCELLULOSE 0.5% OU SCH ×2 (08:57→22:11)
[2018-06-13] MEDS: CHOLECALCIFEROL (VIT-D3) 1,000 UNIT TABLET PO SCH (08:58)
[2018-06-13] MEDS: amLODIPine BESYLATE 5 MG TABLET PO SCH (08:58)
[2018-06-13] MEDS: LISINOPRIL 10 MG TABLET PO SCH (08:58)
[2018-06-13] MEDS: PREDNISOLONE ACETATE OU SCH (08:58)
[2018-06-13] MEDS: SENNOSIDES/DOCUSATE 8.6/50 MG 1 EACH TABLET PO SCH ×2 (08:58→22:11)
[2018-06-13] MEDS: POLYETHYLENE GLYCOL 3350 17 GM POWD.PACK PEG SCH (12:27)
[2018-06-13] MEDS: PSYLLIUM HUSK PO SCH (12:27)
[2018-06-13] MEDS: ASPARTAME PO SCH (12:27)
[2018-06-13] MEDS: FINASTERIDE 5 MG TABLET PO SCH (22:11)
[2018-06-13] MEDS: TAMSULOSIN HCL 0.4 MG CAP.ER.24H PO SCH (22:11)
[2018-06-14] MEDS: amLODIPine BESYLATE 5 MG TABLET PO SCH (08:51)
[2018-06-14] MEDS: CHOLECALCIFEROL (VIT-D3) 1,000 UNIT TABLET PO SCH (08:51)
[2018-06-14] MEDS: SENNOSIDES/DOCUSATE 8.6/50 MG 1 EACH TABLET PO SCH ×2 (08:51→20:16)
[2018-06-14] MEDS: LISINOPRIL 10 MG TABLET PO SCH (08:51)
[2018-06-14] MEDS: CARBOXYMETHYLCELLULOSE 0.5% OU SCH ×2 (08:51→20:16)
[2018-06-14] MEDS: PREDNISOLONE ACETATE OU SCH (08:51)
[2018-06-14] MEDS: POLYETHYLENE GLYCOL 3350 17 GM POWD.PACK PEG SCH (12:19)
[2018-06-14] MEDS: ASPARTAME PO SCH (12:20)
[2018-06-14] MEDS: PSYLLIUM HUSK PO SCH (12:20)
[2018-06-14] MEDS: FINASTERIDE 5 MG TABLET PO SCH (20:16)
[2018-06-14] MEDS: TAMSULOSIN HCL 0.4 MG CAP.ER.24H PO SCH (21:32)
[2018-06-15] MEDS: SENNOSIDES/DOCUSATE 8.6/50 MG 1 EACH TABLET PO SCH ×2 (08:17→20:34)
[2018-06-15] MEDS: amLODIPine BESYLATE 5 MG TABLET PO SCH (08:17)
[2018-06-15] MEDS: CHOLECALCIFEROL (VIT-D3) 1,000 UNIT TABLET PO SCH (08:18)
[2018-06-15] MEDS: PREDNISOLONE ACETATE OU SCH (08:18)
[2018-06-15] MEDS: LISINOPRIL 10 MG TABLET PO SCH (08:18)
[2018-06-15] MEDS: CARBOXYMETHYLCELLULOSE 0.5% OU SCH ×2 (11:51→20:34)
[2018-06-15] MEDS: PSYLLIUM HUSK PO SCH (11:51)
[2018-06-15] MEDS: ASPARTAME PO SCH (11:51)
[2018-06-15] MEDS: POLYETHYLENE GLYCOL 3350 17 GM POWD.PACK PEG SCH (11:52)
[2018-06-15] MEDS: FINASTERIDE 5 MG TABLET PO SCH (20:34)
[2018-06-15] MEDS: TAMSULOSIN HCL 0.4 MG CAP.ER.24H PO SCH (20:35)
[2018-06-15] MEDS: NAPROXEN 250 MG TABLET PO PRN (20:35)
[2018-06-16] MEDS: CARBOXYMETHYLCELLULOSE 0.5% OU SCH ×2 (08:33→20:28)
[2018-06-16] MEDS: amLODIPine BESYLATE 5 MG TABLET PO SCH (08:34)
[2018-06-16] MEDS: PREDNISOLONE ACETATE OU SCH (08:34)
[2018-06-16] MEDS: CHOLECALCIFEROL (VIT-D3) 1,000 UNIT TABLET PO SCH (08:35)
[2018-06-16] MEDS: LISINOPRIL 10 MG TABLET PO SCH (08:35)
[2018-06-16] MEDS: SENNOSIDES/DOCUSATE 8.6/50 MG 1 EACH TABLET PO SCH ×2 (08:35→20:28)
[2018-06-16] MEDS: POLYETHYLENE GLYCOL 3350 17 GM POWD.PACK PEG SCH (11:55)
[2018-06-16] MEDS: ASPARTAME PO SCH (11:55)
[2018-06-16] MEDS: PSYLLIUM HUSK PO SCH (11:55)
[2018-06-16] MEDS: NAPROXEN 250 MG TABLET PO PRN (20:28)
[2018-06-16] MEDS: FINASTERIDE 5 MG TABLET PO SCH (20:29)
[2018-06-16] MEDS: TAMSULOSIN HCL 0.4 MG CAP.ER.24H PO SCH (20:29)
[2018-06-17] MEDS: CARBOXYMETHYLCELLULOSE 0.5% OU SCH ×2 (08:47→21:01)
[2018-06-17] MEDS: PREDNISOLONE ACETATE OU SCH (08:47)
[2018-06-17] MEDS: amLODIPine BESYLATE 5 MG TABLET PO SCH (08:48)
[2018-06-17] MEDS: SENNOSIDES/DOCUSATE 8.6/50 MG 1 EACH TABLET PO SCH ×2 (08:48→21:01)
[2018-06-17] MEDS: LISINOPRIL 10 MG TABLET PO SCH (08:48)
[2018-06-17] MEDS: CHOLECALCIFEROL (VIT-D3) 1,000 UNIT TABLET PO SCH (08:48)
[2018-06-17] MEDS: ASPARTAME PO SCH (11:05)
[2018-06-17] MEDS: POLYETHYLENE GLYCOL 3350 17 GM POWD.PACK PEG SCH (11:05)
[2018-06-17] MEDS: PSYLLIUM HUSK PO SCH (11:05)
[2018-06-17] MEDS: TAMSULOSIN HCL 0.4 MG CAP.ER.24H PO SCH (21:01)
[2018-06-17] MEDS: NAPROXEN 250 MG TABLET PO PRN (21:01)
[2018-06-17] MEDS: FINASTERIDE 5 MG TABLET PO SCH (21:01)
[2018-06-18] MEDS: CARBOXYMETHYLCELLULOSE 0.5% OU SCH (09:07)
[2018-06-18] MEDS: PREDNISOLONE ACETATE OU SCH (09:08)
[2018-06-18] MEDS: CHOLECALCIFEROL (VIT-D3) 1,000 UNIT TABLET PO SCH (09:09)
[2018-06-18] MEDS: LISINOPRIL 10 MG TABLET PO SCH (09:09)
[2018-06-18] MEDS: SENNOSIDES/DOCUSATE 8.6/50 MG 1 EACH TABLET PO SCH (09:09)
[2018-06-18] MEDS: amLODIPine BESYLATE 5 MG TABLET PO SCH (09:09)
--- NOTE | 2018-06-18 10:29 | Discharge Summary ---
Discharge Summary - Discharge [facility] Admission Date: 05/17/18 Discharge Date: 06/18/18 History of Present Illness: This is an 87 year old male who was sweeping in his garage a week before admission. He bent over to push something into the dust pain and when he stood up, he got dizzy and fell to his right landing on his right arm and hip. He had his cell phone with him, and he called [phone]. He was taken to the ER at [place] where he was noted to have a right displaced, closed intertrochanteric hip fracture. He was taken to the OR by Dr. Pedroza on 05/14/18, and this was repaired with an intramedullary nail. His postoperative course has been a little complicated by lack of willingness to get up and ambulate on it. He is admitted for OT/PT for his hip fracture. He came to us with ihnes catheter in place due to inability to urinate postoperatively. Condition at Discharge: Stable Home Medications: Ambulatory Orders Medication Instructions Recorded Acetaminophen [Tylenol] 650 mg PO Q6 PRN 05/17/18 Carboxymethylcellulos/Glycerin 10 ml OP BID 05/17/18 [Refresh Repair 0.5-0.9% Drop] Cholecalciferol (Vitamin D3) 2,000 unit PO DAILY 05/17/18 [Vitamin D3] Diazepam [Valium] 2 mg PO Q6H PRN 05/17/18 Docusate Sodium [Colace] 100 mg PO BID 05/17/18 Enoxaparin Sodium [Lovenox] 40 mg SQ QD 05/17/18 Finasteride [Proscar] 5 mg PO HS 05/17/18 Lisinopril 20 mg PO DAILY 05/17/18 Polyethylene Glycol 3350 [Miralax] 17 gm PO 1100 05/17/18 Prednisolone Acetate/Pf 1 drop OP DAILY 05/17/18 [Prednisolone Acet 1% Eye Drop] Psyllium Husk (with Sugar) 3.4 gm PO HS 05/17/18 [Metamucil Packet] Tamsulosin HCl 0.4 mg PO HS 05/17/18 Tramadol HCl [Ultram] 50 mg PO Q4H PRN 05/17/18 amLODIPine BESYLATE [Norvasc] 5 mg PO 0900 05/17/18 oxyCODONE HCL/ACETAMINOPHEN 2 each PO Q4 PRN 05/17/18 [Percocet 5-325 mg Tablet] Consultations this Visit: Other (PT/OT) Procedures this Visit: Other (Hines Catheter placement) Allergies/Adverse Reactions: Allergies Allergy/AdvReac Type Severity Reaction Status Date / Time No Known Allergies Allergy Verified 05/17/18 19:58 Patient Problems: Current Active Problems Problem Status Onset BPH (benign prostatic hyperplasia) Acute Constipation Acute Essential hypertension Acute Intertrochanteric fracture of right hip Acute Prediabetes Acute Urinary retention Acute Vagal reaction Acute Discharge Summary: Although he was reticent to participate in therapy, he quickly became much more motivated. His hines catheter was removed, but he was unable to urinate, and it was replaced. Two weeks into therapy, bladder training was undertaken, and the hines catheter was removed. He was continued on his Flomax and his Proscar and was able to pass urine. A home visit was done by therapy, and he had a walk in shower placed, and he was discharged with a walker, and a bedside commode. He will follow up with orthopedics as scheduled (Dr. Pedroza) and his primary care provider at the [place]. Medications on discharge: Amlodipine 10 mg po qd Vitamin D3 2,000 po qd Finasteride 5 mg po qd Lisinopril 20 mg po qd Naproxen 500 mg po BID Miralax 17 grams po qd Pred Forte, 1 drop to each eye daily Senna Plus 1 po BID Flomax 0.4 mg po qd Follow up with orthopedics as scheduled Follow up with primary care in two weeks (at [place])
[2018-06-18] MEDS: ASPARTAME PO SCH (11:18)
[2018-06-18] MEDS: POLYETHYLENE GLYCOL 3350 17 GM POWD.PACK PEG SCH (11:18)
[2018-06-18] MEDS: PSYLLIUM HUSK PO SCH (11:18)
[2018-06-18 13:07] VITALS: BP 128/63
== END 2018-06-18 13:35 | disposition home or self-care (01) | DRG 536 ==
LOC: SOUTH 14:08
PROVIDERS: ADMIT Family Medicine; ATTEND Family Medicine
DX: S72.141A Displaced intertrochanteric fracture of right femur, initial encounter for closed fracture (principal); R53.1 Weakness; I10 Essential (primary) hypertension; R55 Syncope and collapse; K59.01 Slow transit constipation; R33.8 Other retention of urine; M25.561 Pain in right knee; E16.2 Hypoglycemia, unspecified; W18.30XA Fall on same level, unspecified, initial encounter; Y93.E5 Activity, floor mopping and cleaning; Y92.009 Unspecified place in unspecified non-institutional (private) residence as the place of occurrence of the external cause; Z96.653 Presence of artificial knee joint, bilateral
CPT/HCPCS: 73502; 76857; 80053; 85025; 87086; 93005; 97110; 97112; 97116; 97161; 97165; 97530; 97535; A9270; J1650; J7030; S1016